=== PATIENT | female | born 1950 | race Caucasian/White ===

== ENCOUNTER → 2016-08-29 | Outpatient (CLI) | payer OTHER ==
[~2016-08-29] MED LIST: ACCUPRIL20 MG PO; AMBIEN 10MG10 MG PO; AMBIEN 5MG TABLE5 MG PO; CEFAZOLIN IV; CLIMARA0.05 MG/24 TD; FLEXERIL 1010 MG/TAB PO; IBUPROFEN PO; LEVOTHYROXINE0.05 M1 PO; LEXAPRO 10MG10 MG PO; MOTRIN 800800 MG/TAB PO; NORCO 325 MG-51 TAB PO; PERCOCET 325 MG1 TAB PO; PREDNISONE20 MG PO; SUDAFED 24 HOU240 MG PO; SYNTHROID0.1 MG/TAB PO; WELLBUTRIN XL300 M1 PO; WELLBUTRIN XL300 MG PO; ZITHROMAX Z PA250 MG PO
== END ==
LOC: SUN.DIA 08:10
DX: E11.65 Type 2 diabetes mellitus with hyperglycemia (principal); E66.9 Obesity, unspecified; Z71.3 Dietary counseling and surveillance
CPT/HCPCS: G0109

== ENCOUNTER → 2016-09-03 | Outpatient (CLI) | payer OTHER | LOC: SUN.DIA 08:44 | DX: E11.65 Type 2 diabetes mellitus with hyperglycemia (principal); Z79.84 Long term (current) use of oral hypoglycemic drugs; E66.9 Obesity, unspecified; Z68.39 Body mass index [BMI] 39.0-39.9, adult; Z71.3 Dietary counseling and surveillance | CPT/HCPCS: G0108 ==

== ENCOUNTER → 2016-09-05 | Outpatient (CLI) | payer OTHER | LOC: SUN.DIA 16:33 | DX: E11.65 Type 2 diabetes mellitus with hyperglycemia (principal); Z79.84 Long term (current) use of oral hypoglycemic drugs; E66.9 Obesity, unspecified; Z71.3 Dietary counseling and surveillance | CPT/HCPCS: G0109 ==

== ENCOUNTER → 2016-09-12 | Outpatient (CLI) | payer OTHER | LOC: SUN.DIA 11:11 | DX: E11.65 Type 2 diabetes mellitus with hyperglycemia (principal); Z79.84 Long term (current) use of oral hypoglycemic drugs; E66.9 Obesity, unspecified; Z71.3 Dietary counseling and surveillance | CPT/HCPCS: G0109 ==

== ENCOUNTER → 2016-09-18 | Outpatient (CLI) | payer OTHER | LOC: SUN.DIA 09:15 | DX: E11.65 Type 2 diabetes mellitus with hyperglycemia (principal); Z79.84 Long term (current) use of oral hypoglycemic drugs; E66.9 Obesity, unspecified; Z68.43 Body mass index [BMI] 50.0-59.9, adult; Z71.3 Dietary counseling and surveillance | CPT/HCPCS: G0108 ==

== ENCOUNTER → 2016-09-19 | Outpatient (CLI) | payer OTHER | LOC: SUN.DIA 11:35 | DX: E11.65 Type 2 diabetes mellitus with hyperglycemia (principal); Z79.84 Long term (current) use of oral hypoglycemic drugs; E66.9 Obesity, unspecified; Z71.3 Dietary counseling and surveillance | CPT/HCPCS: G0109 ==

== ENCOUNTER → 2016-12-03 | Outpatient (CLI) | payer OTHER, MEDICARE | LOC: COL.RAD 11:38 | DX: S09.90XA Unspecified injury of head, initial encounter (principal); R51 Headache ==

== ENCOUNTER → 2017-09-04 | Outpatient (CLI) | payer OTHER, MEDICARE | LOC: COL.RAD 13:20 | DX: S09.90XA Unspecified injury of head, initial encounter (principal) ==

== ENCOUNTER → 2018-08-04 | Outpatient (CLI) | payer MEDICARE, OTHER | LOC: COL.RAD 08:58 | DX: N28.1 Cyst of kidney, acquired (principal) ==

== ENCOUNTER → 2018-12-11 | Outpatient (CLI) | payer MEDICARE, OTHER | LOC: MC.RAD 06:56 | DX: Z12.31 Encounter for screening mammogram for malignant neoplasm of breast (principal); Z98.890 Other specified postprocedural states ==

== ENCOUNTER → 2019-07-09 | Outpatient (CLI) | payer MEDICARE, OTHER ==
[~2019-07-09] VITALS: Ht 162.6 cm; Wt 106.0 kg
[~2019-07-09] MED LIST changes: +FLAXSEED OIL1000 MG PO; +GLUCOPHAGE500 MG/TAB PO; +LIPITOR 10MG10 MG PO; +SYNTHROID 0.10.15 MG PO; +VITAMINE200
[2019-07-09 09:32] VITALS: BP 152/88; PULSE 78
[2019-07-09 10:45] VITALS: BP 165/95; PULSE 74
== END ==
LOC: COL.RAD 09:00
DX: M48.061 Spinal stenosis, lumbar region without neurogenic claudication (principal)
CPT/HCPCS: J3301

== ENCOUNTER 2019-07-30 09:15 | Outpatient (RCR) | payer MEDICARE, OTHER | END 2019-09-22 | disposition home or self-care (01) | LOC: WSST | DX: R41.3 Other amnesia (principal) ==

== ENCOUNTER → 2019-11-26 | Outpatient (CLI) | payer MEDICARE, OTHER ==
[~2019-11-26] VITALS: Ht 162.6 cm; Wt 105.6 kg
[2019-11-26 12:51] VITALS: BP 150/98; PULSE 78
[2019-11-26 14:00] VITALS: BP 149/86; PULSE 78
--- NOTE | 2019-11-26 14:20 | NUR ---
PT TAKEN DOWNSTAIRS TO POV. DRIVING
== END ==
LOC: COL.RAD 12:30
DX: M54.5 Low back pain (principal)
CPT/HCPCS: J3301

== ENCOUNTER → 2019-12-25 | Outpatient (CLI) | payer MEDICARE, OTHER | LOC: MC.RAD 10:04 | DX: Z12.31 Encounter for screening mammogram for malignant neoplasm of breast (principal) ==

== ENCOUNTER → 2020-04-29 | Outpatient (CLI) | payer MEDICARE, OTHER | LOC: COL.RAD 08:05 | DX: R19.00 Intra-abdominal and pelvic swelling, mass and lump, unspecified site (principal); R19.8 Other specified symptoms and signs involving the digestive system and abdomen; Z90.49 Acquired absence of other specified parts of digestive tract ==

== ENCOUNTER → 2020-12-15 | Outpatient (CLI) | payer MEDICARE, OTHER ==
[~2020-12-15] MED LIST changes: -ACCUPRIL20 MG PO; +ACCUPRIL20TAB PO; +LIPITOR20 MG PO; +VITAMIN B122500 MCG SL; +VITAMIN D 50,1.25 MG PO; -VITAMINE200; +VITAMINE200 PO
[2020-12-15 12:19] VITALS: BP 148/89; PULSE 85
[2020-12-15 13:22] VITALS: BP 161/99; PULSE 75
== END ==
LOC: COL.RAD 12:00
DX: M48.061 Spinal stenosis, lumbar region without neurogenic claudication (principal)
CPT/HCPCS: J3301

== ENCOUNTER → 2021-03-20 | Outpatient (CLI) | payer MEDICARE, OTHER ==
[~2021-03-20] VITALS: Ht 162.6 cm; Wt 100.1 kg
[2021-03-20 12:49] VITALS: BP 156/82; PULSE 78; TEMP 99.3
[2021-03-20 14:20] VITALS: BP 142/84; PULSE 67
== END ==
LOC: COL.RAD 12:23
DX: M48.061 Spinal stenosis, lumbar region without neurogenic claudication (principal)
CPT/HCPCS: J3301

== ENCOUNTER 2021-09-25 17:29 | Emergency (ER) | payer MEDICARE, OTHER ==
[~2021-09-25] VITALS: Ht 162.6 cm; Wt 90.9 kg
[2021-09-25 17:53] VITALS: TEMP 97.2
[2021-09-25 18:53] LABS: BASO % 0.3 % (0.0-2.0); EOS % 0.2 % (0.0-4.0); GRAN % 65.3 % (42.2-75.2); HEMATOCRIT 38.5 % (37.0-47.0); HEMOGLOBIN 13.1 g/dl (12.5-16.0); LYMPH # 2.9 K/mm3 (1.2-3.4); LYMPH % 27.2 % (20.0-51.0); MEAN CELL VOLUME 91 fl (80.0-100.0); MEAN CORPUSCULAR HEMOGLOBIN 31 pg (27-31); MEAN CORPUSCULAR HGB CONC 34 g/dl (33.0-37.0); MEAN PLATELET VOLUME 10.7 fl (7.4-10.4); MONO # 0.7 K/mm3 (0.1-0.6); MONO % 6.3 % (1.7-9.3); PLATELET COUNT 191 K/mm3 (130-400); RED BLOOD COUNT 4.23 M/mm3 (4.10-5.30); REDCELL DISTRIBUTION WIDTH-CV 13.2 % (11.5-14.5)
[2021-09-25 19:08] LABS: ALBUMIN 4.1 gm/dL (3.4-4.8); BILIRUBIN,TOTAL 0.6 mg/dL (0.2-1.2); CALCIUM 9.4 mg/dL (8.4-10.2); CREATININE, serum 1.1 mg/dL (0.57-1.11); TOTAL PROTEIN 6.8 gm/dL (6.2-8.1)
[2021-09-25 21:15] LABS: COLLECTION METHOD CLEAN CATCH
[2021-09-25 21:33] LABS: PH 5 (5-8); SQUAMOUS EPITHELIAL 0-2 /hpf (0-10); URINE APPEARANCE Clear (CLEAR/HAZY); URINE BACTERIA Rare /hpf (NONE SEEN); URINE BILIRUBIN Negative (NEGATIVE); URINE BLOOD Negative (NEGATIVE); URINE COLOR Straw (YELLOW); URINE GLUCOSE Negative (NEGATIVE); URINE KETONE Negative (NEGATIVE); URINE LEUKOCYTE ESTERASE Negative (NEGATIVE); URINE NITRATE Negative (NEGATIVE); URINE PROTEIN(semi-quant) Negative (NEGATIVE); URINE RBC 0-2 /hpf (0-2); URINE UROBILINOGEN Negative (NEGATIVE)
[2021-09-25] MEDS ORDERED: FLEXERIL 1010 MG/TAB PO (21:39)
[2021-09-25] MEDS ORDERED: NAPROSYN500 MG PO (21:39)
[2021-09-25 21:59] VITALS: BP 120/71; PULSE 60
== END 2021-09-25 22:06 | disposition home or self-care (01) ==
LOC: COL.ER 17:29
PROVIDERS: Emergency Medicine
DX: M54.50 Low back pain, unspecified (principal); R10.32 Left lower quadrant pain; Z88.6 Allergy status to analgesic agent; X50.0XXA Overexertion from strenuous movement or load, initial encounter; Y93.F2 Activity, caregiving, lifting
CPT/HCPCS: J1170; J2270; J2405; J3360; J7030; Q9967

== ENCOUNTER → 2021-11-13 | Outpatient (CLI) | payer MEDICARE, OTHER ==
[~2021-11-13] VITALS: Ht 162.6 cm; Wt 97.9 kg
[~2021-11-13] MED LIST changes: +FOSAMAX 70MG TA70 MG PO; +HORIZANT300 MG PO; +NAPROSYN500 MG PO
[2021-11-13 13:31] VITALS: BP 141/79; PULSE 95; TEMP 97.9
[2021-11-13 14:25] VITALS: BP 115/48; PULSE 92
== END ==
LOC: COL.RAD 12:59
DX: M79.2 Neuralgia and neuritis, unspecified (principal); M54.6 Pain in thoracic spine
CPT/HCPCS: J1100

== ENCOUNTER → 2023-11-22 | Outpatient (CLI) | payer MEDICARE | LOC: COL.RAD 08:00 | DX: R51.9 Headache, unspecified (principal) ==

== ENCOUNTER → 2023-12-11 | Outpatient (CLI) | payer MEDICARE ==
[~2023-12-11] MED LIST changes: +Gadoterate 20 ML VIAL IV ONE
== END ==
LOC: COL.RAD 07:36
DX: M26.643 Arthritis of bilateral temporomandibular joint (principal); M48.02 Spinal stenosis, cervical region
CPT/HCPCS: A9575